=== PATIENT | male | born 1960 | race Caucasian/White ===

== ENCOUNTER 2024-07-20 07:53 | Day surgery (SDC) | payer MEDICARE ==
[~2024-07-20] VITALS: Ht 193 cm; Wt 101.8 kg
[~2024-07-20 07:53] MED LIST: ALLOPURINOL300 MG PO; ASPIR-LOW81 MG PO; ASPIRIN E.C. 8181 M1 PO; FISH OIL500 MG PO; GEMCOR600 MG PO; GEMFIBROZIL600 MG PO; GINKO BILOBA60 MG PO; LISINOPRIL10 MG PO; LR 1,000 ML IV SCH; METFORMIN500 MG PO; Ondansetron 4 MG/2 ML VIAL IV PRN; SIMVASTATIN10 MG PO; SINGULAIR PO; SINGULAIR10 MG PO; ZOCOR 20MG20 MG PO; [UNRECOGNIZED DRUG - OTHER]
[2024-07-20 09:08] VITALS: BP 139/83; PULSE 62; TEMP 97
[2024-07-20] MEDS ORDERED: Lidocaine PF 2% (20 MG/ML) 5 ML VIAL ONE (09:12)
[2024-07-20 09:50] VITALS: BP 93/59; PULSE 69; TEMP 97
--- NOTE | 2024-07-20 09:50 | NUR ---
0950:Pt arrives to [facility] via cart, awake/alert. Pt amb to chair, VSS on room air, denies nausea/pain. Offered PO. 1008: Dr Sesay in to talk to pt. 1030: Discharge instructions reviewed with understanding verbalized. Questions invited and answered.
[2024-07-20 10:10] VITALS: BP 113/69; PULSE 70
[2024-07-20] MEDS ORDERED: ZYLOPRIM 300MG300 MG PO (16:12)
[2024-07-20] MEDS ORDERED: EFFEXOR 75M75 MG/TAB PO (16:12)
[2024-07-20] MEDS ORDERED: LOPID 600M600 MG/TAB PO (16:14)
[2024-07-20] MEDS ORDERED: SYNTHROID0.075 MG/T PO (16:15)
[2024-07-20] MEDS ORDERED: GLUCOPHAGE XR500 M1 PO (16:16)
[2024-07-20] MEDS ORDERED: PRINIVIL10 MG PO (16:16)
[2024-07-20] MEDS ORDERED: CIALIS5 MG PO (16:17)
[2024-07-20] MEDS ORDERED: ZOCOR 20MG20 MG PO (16:17)
[2024-07-20] MEDS ORDERED: PROTONIX20 MG PO (16:18)
[2024-07-20] MEDS ORDERED: 5-HTP100 MG PO (16:21)
[2024-07-20] MEDS ORDERED: ASPIRIN E.C. 8181 MG PO (16:24)
[2024-07-20] MEDS ORDERED: THE MEDICINE S200 M2 PO (16:24)
[2024-07-20] MEDS ORDERED: Adrenal PX PO (16:24)
[2024-07-20] MEDS ORDERED: EPA FISH OIL1 SGL PO (16:26)
[2024-07-20] MEDS ORDERED: FLAXSEED OIL1000 MG PO (16:27)
[2024-07-20] MEDS ORDERED: GINKGO2 PO (16:28)
[2024-07-20] MEDS ORDERED: MELATONIN 3 MG-1 TAB PO (16:29)
[2024-07-20] MEDS ORDERED: MAGNESIUM GLUC500 MG PO (16:29)
[2024-07-20] MEDS ORDERED: MASON NATURAL N1 CAP PO (16:31)
[2024-07-20] MEDS ORDERED: PRESERVISIONLUT PO (16:32)
[2024-07-20] MEDS ORDERED: MULTI-VITAMIN W1 TA1 PO (16:35)
[2024-07-20] MEDS ORDERED: NATURAL ST. JO300 MG PO (16:36)
[2024-07-20] MEDS ORDERED: ARMOUR THYROID15 MG PO (16:36)
[2024-07-20] MEDS ORDERED: VITAMIN D250 MCG PO (16:38)
[2024-07-20] MEDS ORDERED: GALZIN50 MG PO (16:39)
[2024-07-20] MEDS ORDERED: NATURAL SAW PA160 MG PO (16:40)
[2024-07-20] MEDS ORDERED: TYROSINE PO (16:41)
[2024-07-20] MEDS ORDERED: B COMPLEX #11 TA1 PO (16:42)
== END 2024-07-20 10:45 | disposition home or self-care (01) ==
LOC: SDCO 07:53
DX: K21.00 Gastro-esophageal reflux disease with esophagitis, without bleeding (principal); K44.9 Diaphragmatic hernia without obstruction or gangrene; Z79.82 Long term (current) use of aspirin
CPT/HCPCS: J2704; J7120